=== PATIENT | male | born 1975 | race Caucasian/White ===

== ENCOUNTER 2022-02-14 07:58 | Emergency (ER) | payer OTHER ==
[~2022-02-14] VITALS: Ht 177.8 cm; Wt 129.4 kg
[2022-02-14 09:17] VITALS: BP 170/111
== END 2022-02-14 09:19 | disposition home or self-care (01) ==
LOC: ER 07:59
DX: Z02.89 Encounter for other administrative examinations (principal); E11.9 Type 2 diabetes mellitus without complications
CPT/HCPCS: 82948; 93005; 99283